=== PATIENT | female | born 2000 | race Caucasian/White ===

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

== ENCOUNTER 2018-03-31 10:22 | Outpatient (CLI) | payer OTHER ==
[~2018-03-31] VITALS: Ht 152.4 cm; Wt 52.2 kg
[~2018-03-31 10:22] MED LIST: CEPH-443 PO
[2018-03-31 10:36] VITALS: Ht 152.4 cm; Wt 52.2 kg
[2018-03-31 10:37] VITALS: BP 113/62; PULSE 77; RESP 18
--- NOTE | 2018-03-31 13:19 | PN ---
Triage Information Date/Time March 31, 2018 Reason for visit: DFM (Patient complaint of no movement for 3 days) Weeks of Gestation 21-week /Para 1 para 0 Diabetes: none Hypertention: none Objective Vital Signs Date Temp Pulse Resp B/P (MAP) Pulse Ox O2 O2 Flow FiO2 Time Delivery Rate 03/31/18 98.0 77 18 113/62 100 Room Air 10:37 (79) Heart Rate: 130's Contractions: None Exam Reported to be long and closed Results/Medications Imaging Results 1. Single, live intrauterine with estimated age of 20 weeks, 5 days. 2. Estimated weight: 407 g, 56 %. 3. Posterior placenta without previa or abruption. 4- Cardiac activity is present with 131 beats per minute. 5. The cervix is closed with trace fluid. The cervical length is 3.3 cm, which is within normal limits MATTHEW PRESCOTT MD Mar 31, 2018 13:19
--- NOTE | 2018-03-31 13:31 | TRIAGE ---
OB Triage Datetime Report Generated by CPN: 03/31/2018 13:30 Datetime: 03/31/2018 13:25 Stage of : OB Triage Maternal Assessment Level of Consciousness: Fully Conscious Labor Evaluation Frequency: 0 Monitor Mode: External Resting Tone [place]: Relaxed Heart Rate Monitor Mode: ORDERS FOR LIMITED MONITORING Pain Assessment Pain Scale: 0 Pain Goal: 3 Membrane Status: Intact Vaginal Bleeding: None Datetime: 03/31/2018 13:07 Vaginal Exam Dilatation (cms): 0.0 Exam By: khemani Datetime: 03/31/2018 12:30 Stage of : OB Triage Maternal Assessment Level of Consciousness: Fully Conscious Labor Evaluation Frequency: 0 Monitor Mode: External Resting Tone [place]: Relaxed Heart Rate Monitor Mode: ORDERS FOR LIMITED MONITORING Pain Assessment Pain Scale: 0 Pain Goal: 3 Membrane Status: Intact Vaginal Bleeding: None Datetime: 03/31/2018 11:30 Stage of : OB Triage Maternal Assessment Level of Consciousness: Fully Conscious Labor Evaluation Frequency: 0 Monitor Mode: External Resting Tone [place]: Relaxed Heart Rate Monitor Mode: External US (Annotations: FHT'S OBTAINED IN THE 140'S) Pain Assessment Pain Scale: 0 Pain Goal: 3 Membrane Status: Intact Vaginal Bleeding: None Datetime: 03/31/2018 10:34 Assessment Type: Triage Maternal Assessment Level of Consciousness: Fully Conscious DTR's/Clonus: DTRs 2+; No Clonus Headache: Denies Blurred Vision: No Respiratory Effort: Unlabored; Regular Rhythm; Equal Expansion Breath Sounds, Left: Clear and Equal Breath Sounds, Right: Clear and Equal Nausea/Vomiting: Denies RUQ Epigastric Pain: Denies Lower Extremities Edema: None Degree: None Upper Extremities Edema: None Degree: None Facial Edema: None Fall Risk Assessment History of Falling: (0) No Secondary Diagnosis: (0) No Ambulatory Aid: (0) Bedrest/Nurse Assist IV Therapy: (0) No Gait: (0) Normal/Bedrest/Immobile Mental Status: (0) Oriented to Own Ability Fall Score: 0 Fall Risk Score Definition: No Risk: No action required Datetime: 03/31/2018 10:31 Monitor Mode: External Heart Rate Monitor Mode: External US Datetime: 03/31/2018 10:27 Time of Arrival: 03/31/2018 10:11 EGA: 21.0 Arrived By: Ambulatory Arrived From: Home Chief Complaint: PT. HERE C/O DFM X 3 DAYS Movement: Absent Contractions: Denies/Absent Rupture of Membranes: Denies Vaginal Bleeding: None Vaginal Discharge: Denies Recent Sexual Intercouse: Denies Abdominal Trauma: Not Applicable Patient Complaints: None Time Provider Notified: 03/31/2018 10:52 Provider Notified: SHANTI Initial Plan: C-TOCO/FHT'S/US-TERE/SVE/CVL
== END 2018-03-31 13:38 | disposition home or self-care (01) ==
LOC: OBT 10:22 → L-D 10:24 → OBT 13:38
PROVIDERS: ATTEND Obstetrics & Gynecology
DX: O36.8120 Decreased fetal movements, second trimester, not applicable or unspecified (principal); Z3A.21 21 weeks gestation of pregnancy
CPT/HCPCS: 76815; 76817; Z7500; G0463

== ENCOUNTER 2018-06-01 19:20 | Inpatient (IN) | payer OTHER ==
[~2018-06-01] VITALS: Ht 152.4 cm; Wt 59.9 kg
[2018-06-01] MEDS ORDERED: PREN-93 PO (19:26)
[2018-06-01 19:33] VITALS: BP 114/55; PULSE 83; RESP 16
[2018-06-01] MEDS ORDERED: MAGNESIUM SULFATE 4 GM/100 ML 100 ML ONE (21:52)
[2018-06-01] MEDS ORDERED: MAGNESIUM SULFATE 4 GM/100 ML 100 ML IV ONE (22:00)
[2018-06-01] MEDS: LACTATED RINGER'S 1,000 ML IV SCH (22:02)
[2018-06-01] MEDS: MAGNESIUM SULFATE 20 GM/500 ML 500 ML IV SCH (22:33)
[2018-06-01] MEDS ORDERED: ACETAMINOPHEN 325 MG TAB PO PRN (23:30)
[2018-06-01] MEDS ORDERED: AL HYDROX/MG HYDROX/SIMETH 30 ML CUP PO PRN (23:30)
[2018-06-01] MEDS: BETAMET NA PHOS/AC(6 MG/ML) 2 ML INJ SYG IM SCH (23:56)
--- NOTE | 2018-06-02 01:59 | TRIAGE ---
OB Triage Datetime Report Generated by CPN: 06/02/2018 01:59 Datetime: 06/02/2018 01:12 Stage of : Antepartum Monitor Mode: External Monitor Mode: External US Comments: loss of contact Datetime: 06/02/2018 01:00 Stage of : Labor Labor Evaluation Frequency: occasional Monitor Mode: External Pattern: Normal: <= 5 Contractions in 10 Minutes Resting Tone [place]: Relaxed Heart Rate FHR Baseline Rate: 120 Monitor Mode: External US Variability: Moderate 6-25 bpm Accelerations: 15X15 Decelerations: None Category: Category I Datetime: 06/02/2018 00:25 Stage of : Labor Labor Evaluation Frequency: occasional Monitor Mode: External Pattern: Normal: <= 5 Contractions in 10 Minutes Resting Tone [place]: Relaxed Heart Rate FHR Baseline Rate: 125 Monitor Mode: External US Variability: Moderate 6-25 bpm Accelerations: 15X15 Decelerations: None Category: Category I Datetime: 06/02/2018 00:00 Stage of : Labor Labor Evaluation Frequency: occasional Monitor Mode: External Pattern: Normal: <= 5 Contractions in 10 Minutes Resting Tone [place]: Relaxed Heart Rate FHR Baseline Rate: 130 Monitor Mode: External US Variability: Moderate 6-25 bpm Accelerations: 15X15 Decelerations: None Category: Category I Datetime: 06/01/2018 22:45 Labor Evaluation Frequency: occasional Monitor Mode: External Quality: Mild Pattern: Normal: <= 5 Contractions in 10 Minutes Resting Tone [place]: Relaxed Heart Rate FHR Baseline Rate: 135 Monitor Mode: External US FHR Baseline Changes: No Baseline Change Variability: Moderate 6-25 bpm Accelerations: 15X15 Decelerations: None Category: Category I Datetime: 06/01/2018 21:47 Assessment Type: Admission Assessment Vaginal Bleeding: None Maternal Assessment Level of Consciousness: Fully Conscious DTR's/Clonus: DTRs 2+; No Clonus Headache: Denies Blurred Vision: No Respiratory Effort: Unlabored; Regular Rhythm; Equal Expansion Breath Sounds, Left: Clear and Equal Breath Sounds, Right: Clear and Equal Nausea/Vomiting: Denies RUQ Epigastric Pain: Denies Facial Edema: None Fall Risk Assessment History of Falling: (0) No Secondary Diagnosis: (0) No Ambulatory Aid: (0) Bedrest/Nurse Assist Gait: (0) Normal/Bedrest/Immobile Mental Status: (0) Oriented to Own Ability Datetime: 06/01/2018 21:46 Time of Arrival: 06/01/2018 21:35 EGA: 29.6 Arrived By: Ambulatory Arrived From: Home Datetime: 06/01/2018 21:39 Labor Evaluation Frequency: 3-4 Monitor Mode: External Duration (sec)2399: 50-60 Quality: Mild Pattern: Normal: <= 5 Contractions in 10 Minutes Resting Tone [place]: Relaxed Heart Rate FHR Baseline Rate: 140 Monitor Mode: External US FHR Baseline Changes: No Baseline Change Variability: Moderate 6-25 bpm Accelerations: 15X15 Decelerations: None Category: Category I Datetime: 06/01/2018 20:40 Labor Evaluation Frequency: x1 Monitor Mode: External Duration (sec)2399: 50 Quality: Mild Pattern: Normal: <= 5 Contractions in 10 Minutes Resting Tone [place]: Relaxed Heart Rate FHR Baseline Rate: 135 Monitor Mode: External US FHR Baseline Changes: No Baseline Change Variability: Moderate 6-25 bpm Accelerations: 15X15 Decelerations: None Category: Category I Datetime: 06/01/2018 19:40 Labor Evaluation Frequency: none Monitor Mode: External Pattern: Normal: <= 5 Contractions in 10 Minutes Resting Tone [place]: Relaxed Heart Rate FHR Baseline Rate: 135 Monitor Mode: External US FHR Baseline Changes: No Baseline Change Variability: Moderate 6-25 bpm Accelerations: 15X15 Decelerations: None Category: Category I Datetime: 06/01/2018 19:36 Time of Arrival: 06/01/2018 19:17 EGA: 29.6 Arrived By: Wheelchair Arrived From: Other Hospital Chief Complaint: dfm/leaking Movement: Decreased Contractions: Denies/Absent Rupture of Membranes: Unsure Vaginal Bleeding: None Vaginal Discharge: Present Recent Sexual Intercouse: Denies Abdominal Trauma: Not Applicable Time Provider Notified: 06/01/2018 19:44 Provider Notified: SHANTI Initial Plan: cefm, ua, ROM+, cervical length, CBC Datetime: 06/01/2018 19:34 Comments: MONITORS APPLIED. AUDIBLE FHT Datetime: 06/01/2018 19:33 Stage of : OB Triage Assessment Type: Triage Maternal Assessment Level of Consciousness: Fully Conscious DTR's/Clonus: DTRs 2+; No Clonus Headache: Denies Blurred Vision: No Respiratory Effort: Unlabored; Regular Rhythm; Equal Expansion Breath Sounds, Left: Clear and Equal Breath Sounds, Right: Clear and Equal Nausea/Vomiting: Denies RUQ Epigastric Pain: Denies Lower Extremities Edema: None Degree: None Upper Extremities Edema: None Degree: None Facial Edema: None Temperature Route: Oral Fall Risk Assessment History of Falling: (0) No Secondary Diagnosis: (0) No Ambulatory Aid: (0) Bedrest/Nurse Assist IV Therapy: (0) No Gait: (0) Normal/Bedrest/Immobile Mental Status: (0) Oriented to Own Ability Fall Score: 0 Fall Risk Score Definition: No Risk: No action required Pain Assessment Pain Scale: 0 Pain Presence: None/Denies Pain Type: N/A Datetime: 03/31/2018 10:34 Fall Score: 0 Fall Risk Score Definition: No Risk: No action required Datetime: 03/31/2018 10:27 EGA: 21.0
[2018-06-02] MEDS: LACTATED RINGER'S 1,000 ML IV SCH ×2 (05:36→17:17)
[2018-06-02] MEDS: MAGNESIUM SULFATE 20 GM/500 ML 500 ML IV SCH (08:35)
[2018-06-02] MEDS: PRENATAL VITAMIN PO SCH (09:14)
[2018-06-02] MEDS: DOCUSATE SODIUM 100 MG CAP PO SCH (09:14)
[2018-06-02] MEDS ORDERED: AL HYDROX/MG HYDROX/SIMETH 30 ML CUP PO ONE (11:30)
--- NOTE | 2018-06-02 11:59 | HP ---
Date/Time of Note Date/Time of Note late entry DATE: 06/01/18 OB - History Hx of Present Free Text/Dictation 18 y/o female at29 weeks C/O onset of passage of water and uterine contractions started few hours prior to admission Estimated Due Date: Aug 11, 2018 : 1 Para: 0 Care: Good Care Ultrasounds: Normal mid trimester US Obstetrical Complications: None Medical Complications: None Past Family/Social History * Past Medical, Surgical, Family and Obstetric Histories reviewed from chart. OB Admission Exam Vital Signs Vital Signs Vital Signs Date Temp Pulse Resp B/P (MAP) Pulse Ox O2 O2 Flow FiO2 Time Delivery Rate 06/01/18 98.0 83 16 114/55 Room Air 19:33 (74) Physical Exam HEENT: WNL Heart: Rhythm Normal Lungs: Clear, Equal Abdomen: WNL Extremities: Normal Reflexes: Normal Cervical Dilatation: None Effacement: 25% Station: -3 Membranes: Intact Heart Rate: 150's Accelerations: Accelerations Present Decelerations: No Decelerations Varibility: Marked Contractions on Admission: 6-10 Minutes Apart Last 72 hours Lab Results CBC & BMP 06/01/18 19:58 06/01/18 20:44 Liver Function Test 06/01/18 20:44 Alanine Aminotransferase (ALT/SGPT) 10 L Albumin 3.5 Alkaline Phosphatase 119 Aspartate Amino Transf (AST/SGOT) 53 H Direct Bilirubin 0.00 Total Protein 6.3 Magnesium Level Test 06/02/18 02:41 06/02/18 07:59 Magnesium Level 5.0 H 5.9 *H OB Assessment/Plan Other Assessment: 29.6 weeks gestation U/Cs ruptured membranes ruled out funneling of the cervix Other plan: tocolysis of uterine contractions Steroids were ordered MATTHEW PRESCOTT MD Jun 02, 2018 11:58
[2018-06-02] MEDS: BETAMET NA PHOS/AC(6 MG/ML) 2 ML INJ SYG IM SCH (14:41)
--- NOTE | 2018-06-02 16:29 | PN ---
Date/Time of Note Date/Time of Note DATE: 06/02/18 TIME: 16:24 OB Subjective Subjective Subjective Currently has no complaint of uterine contractions She refused the betamethasone for questionable reasons OB Objective Objective Objective Magnesium sulfate is DC'd because of patient discomfort Neuro physical exam as well as vital signs are stable On electronic monitoring still minimal or no uterine contractions seen OB Assessment/Plan Other Assessment: labor with slightly shortened cervix and funneling of his at 29+ weeks Other plan: Continue with p.o. Procardia Encourage patient to receive betamethasone and possibly discharge patient next day MATTHEW PRESCOTT MD Jun 02, 2018 16:29
[2018-06-02] MEDS: NIFEdipine 10 MG CAP PO SCH (18:06)
[2018-06-03] MEDS: NIFEdipine 10 MG CAP PO SCH ×4 (00:29→17:48)
[2018-06-03] MEDS: LACTATED RINGER'S 1,000 ML IV SCH ×3 (01:25→13:48)
[2018-06-03] MEDS: PRENATAL VITAMIN PO SCH (09:04)
[2018-06-03] MEDS: DOCUSATE SODIUM 100 MG CAP PO SCH (09:04)
[2018-06-03] MEDS ORDERED: BETAMET NA PHOS/AC(6 MG/ML) 2 ML INJ SYG IM SCH (14:00)
--- NOTE | 2018-06-03 18:01 | DS ---
Date/Time of Note Date/Time of Note DATE: 06/03/18 TIME: 18:00 Obstetrical Discharge Record Final Diagnosis Final Diagnosis: not delivered Other Final Diagnosis contractions at 30 weeks Complications Labor Tocolytics: Magnesium Sulfate, Other (Nifedipine) Condition on Discharge Physical Assessment Voiding: Yes Bowel Movement: Yes Breast: Soft, non-tender, Filling Fundus: Other () Abdomen and Incision: Abdomen is gravid fundal height is 3031 cm heart tones are reactive On electronic monitoring no uterine contractions seen Calf Tenderness: No Patient Condition: Good MATTHEW PRESCOTT MD Jun 03, 2018 18:01
--- NOTE | 2018-06-03 18:02 | PD.PPDC ---
[employer] Discharge Instruction Provider Information Physician Information 18-year-old female was admitted for contractions tocolyse is a contractions Diagnosis [id number] Final Diagnosis: [id number] Term labor Condition [id number] Patient Condition: [id number] Good Diet [id number] Diet: [id number] Resume Regular Diet Activity/Restrictions [id number] Activity: [id number] Bedrest May Shower [id number] Restrictions: [id number] No Exercising No Lifting Minimize Walking Minimize Stair-climbing Nothing in the Vagina Follow-up Follow-up with Physician: 1, 2, Day/Days (In clinic) Return to clinic for Comment: Pelvic and bedrest until delivery MATTHEW PRESCOTT MD Jun 03, 2018 18:02
[2018-06-03] MEDS ORDERED: NIFE10CA PO (18:03)
[2018-06-03] MEDS ORDERED: PROG100C5 VAG (18:07)
[2018-06-03] MEDS: PROGESTERONE 100 MG CAP VAG SCH ×2 (19:30→19:52)
== END 2018-06-03 19:50 | disposition home or self-care (01) | DRG 832 ==
LOC: OBT 19:20 → L-D 19:20 → OBT 21:25 → L-D 21:25 → PP1 23:52
PROVIDERS: ADMIT Obstetrics & Gynecology; ATTEND Obstetrics & Gynecology
DX: O60.03 Preterm labor without delivery, third trimester (principal); O26.873 Cervical shortening, third trimester; Z3A.29 29 weeks gestation of pregnancy
CPT/HCPCS: 76815; 76817; 76818; 80053; 80307; 81001; 83735; 84112; 85025; G0463; J0702; J3475; J7120

== ENCOUNTER 2018-07-11 07:39 | Outpatient (CLI) | payer OTHER ==
[~2018-07-11] VITALS: Ht 152.4 cm; Wt 63.0 kg
[~2018-07-11 07:39] MED LIST changes: -CEPH-443 PO; +NIFE10CA PO; +PREN-93 PO; +PROG100C5 VAG
[2018-07-11 07:59] VITALS: Ht 152.4 cm; Wt 63.0 kg
[2018-07-11 08:00] VITALS: BP 109/62; PULSE 80; RESP 18
[2018-07-11] MEDS ORDERED: ACETAMINOPHEN 325 MG TAB PO ONE (11:00)
--- NOTE | 2018-07-11 13:32 | TRIAGE ---
OB Triage Datetime Report Generated by CPN: 07/11/2018 13:31 Datetime: 07/11/2018 12:41 Stage of : OB Triage Datetime: 07/11/2018 12:38 Labor Evaluation Frequency: 8-12 Monitor Mode: External Duration (sec)2399: 40-60 Quality: Mild Pattern: Normal: <= 5 Contractions in 10 Minutes Resting Tone [place]: Relaxed Heart Rate FHR Baseline Rate: 125 Monitor Mode: External US Variability: Moderate 6-25 bpm Accelerations: 10X10 Decelerations: None Category: Category I Pain Assessment Pain Scale: 0 Pain Presence: None/Denies Pain Type: N/A Pain Goal: 3 Pain Relief Measures: Comfort Measures Datetime: 07/11/2018 11:35 Labor Evaluation Frequency: 6-10 Monitor Mode: External Duration (sec)2399: 50-60 Pattern: Normal: <= 5 Contractions in 10 Minutes Resting Tone [place]: Relaxed Heart Rate FHR Baseline Rate: 135 Monitor Mode: External US Variability: Moderate 6-25 bpm Accelerations: 10X10 Decelerations: None Category: Category I Pain Assessment Pain Scale: 4 Pain Presence: Intermittent Pain Type: Cramping Pain Location: Perineum Pain Goal: 3 Pain Relief Measures: Comfort Measures Datetime: 07/11/2018 10:52 Stage of : OB Triage Datetime: 07/11/2018 10:40 Stage of : OB Triage Datetime: 07/11/2018 10:36 Labor Evaluation Frequency: 12-15 Duration (sec)2399: 50-60 Heart Rate FHR Baseline Rate: 125 Monitor Mode: External US Variability: Moderate 6-25 bpm Accelerations: 10X10 Decelerations: None Category: Category I Pain Assessment Pain Scale: 5 Pain Presence: Intermittent Pain Type: Cramping Pain Location: Abdomen Pain Goal: 3 Pain Relief Measures: Comfort Measures Datetime: 07/11/2018 10:34 Exam By: S KATHERINE Vaginal Bleeding: None Cervix, Consistency: Soft Cervix, Position: Posterior Presentation 'A': Cephalic Datetime: 07/11/2018 08:52 Labor Evaluation Frequency: 6-8 Monitor Mode: External Duration (sec)2399: 30-50 Quality: Mild Pattern: Normal: <= 5 Contractions in 10 Minutes Resting Tone [place]: Relaxed Heart Rate FHR Baseline Rate: 135 Monitor Mode: External US Variability: Moderate 6-25 bpm Accelerations: 10X10 Decelerations: None Category: Category I Pain Assessment Pain Scale: 5 Pain Presence: Intermittent Pain Type: Cramping Pain Location: Abdomen Pain Goal: 3 Pain Relief Measures: Comfort Measures Datetime: 07/11/2018 08:22 Stage of : OB Triage Datetime: 07/11/2018 07:49 Stage of : OB Triage Assessment Type: Triage Maternal Assessment Level of Consciousness: Fully Conscious DTR's/Clonus: DTRs 2+; No Clonus Headache: Denies Blurred Vision: No Respiratory Effort: Unlabored; Regular Rhythm; Equal Expansion Breath Sounds, Left: Clear and Equal Breath Sounds, Right: Clear and Equal Nausea/Vomiting: Denies RUQ Epigastric Pain: Denies Facial Edema: None Temperature Route: Axillary Fall Risk Assessment History of Falling: (0) No Secondary Diagnosis: (0) No Ambulatory Aid: (0) Bedrest/Nurse Assist IV Therapy: (0) No Gait: (0) Normal/Bedrest/Immobile Mental Status: (0) Oriented to Own Ability Fall Score: 0 Fall Risk Score Definition: No Risk: No action required Labor Evaluation Frequency: 0 Monitor Mode: External Pattern: Normal: <= 5 Contractions in 10 Minutes Resting Tone [place]: Relaxed Heart Rate FHR Baseline Rate: 125 Monitor Mode: External US Variability: Moderate 6-25 bpm Accelerations: None Pain Assessment Pain Scale: 5 Pain Presence: Intermittent Pain Type: Cramping; Contraction Pain Location: Abdomen Pain Goal: 3 Pain Relief Measures: Comfort Measures Vaginal Exam Dilatation (cms): 1.5 Effacement (%): 70 Station: -1 Exam By: Luiza KATHERINE Membrane Status: Intact Datetime: 07/11/2018 07:48 Time of Arrival: 07/11/2018 07:36 EGA: 36.6 Arrived By: Ambulatory Arrived From: Home Chief Complaint: C/O UC'S Q 20 MIN SINCE APPROX 545 THIS AM, DENIES LEAKING OR BLEEDING Movement: Present Contractions: Irregular Contractions: 15-20 Rupture of Membranes: Denies Vaginal Bleeding: None Vaginal Discharge: Present Recent Sexual Intercouse: Denies Abdominal Trauma: Not Applicable Patient Complaints: Contractions; Cramping Time Provider Notified: 07/11/2018 08:25 Provider Notified: aria Initial Plan: MONITOR, VE, bpp, CBC, UA, TYLENOL Datetime: 07/11/2018 07:42 EGA: 31.1 Datetime: 06/03/2018 21:15 Stage of : Antepartum Datetime: 06/03/2018 21:00 Labor Evaluation Frequency: NONE Monitor Mode: External Resting Tone [place]: Relaxed Contraction Comments: REMOVED FOR DISCHARGE Heart Rate FHR Baseline Rate: 130 Monitor Mode: External US Variability: Moderate 6-25 bpm Accelerations: 15X15 Decelerations: None Category: Category I Comments: REMOVED FOR DISCHARGE Pain Presence: None/Denies Pain Type: N/A Datetime: 06/03/2018 20:00 Labor Evaluation Frequency: NONE Monitor Mode: External Resting Tone [place]: Relaxed Heart Rate FHR Baseline Rate: 135 Monitor Mode: External US Variability: Moderate 6-25 bpm Accelerations: 15X15 Decelerations: None Category: Category I Pain Presence: None/Denies Pain Type: N/A Datetime: 06/03/2018 19:52 Stage of : Antepartum Datetime: 06/03/2018 19:50 Stage of : Antepartum Datetime: 06/03/2018 19:18 Stage of : Antepartum Assessment Type: Ongoing Assessment Maternal Assessment Level of Consciousness: Fully Conscious DTR's/Clonus: DTRs 2+; No Clonus Headache: Denies Blurred Vision: No Respiratory Effort: Unlabored; Regular Rhythm; Equal Expansion Breath Sounds, Left: Clear and Equal Breath Sounds, Right: Clear and Equal Nausea/Vomiting: Denies RUQ Epigastric Pain: Denies Lower Extremities Edema: None Degree: None Upper Extremities Edema: None Degree: None Facial Edema: None Temperature Route: Oral Fall Risk Assessment History of Falling: (0) No Secondary Diagnosis: (0) No Ambulatory Aid: (0) Bedrest/Nurse Assist IV Therapy: (0) No Gait: (0) Normal/Bedrest/Immobile Mental Status: (0) Oriented to Own Ability Fall Score: 0 Fall Risk Score Definition: No Risk: No action required Monitor Mode: External Contraction Comments: PT DENIES UC'S Monitor Mode: External US Comments: PT DENIES CRAMPING Pain Presence: None/Denies Pain Type: N/A Datetime: 06/03/2018 19:15 Stage of : Antepartum Datetime: 06/03/2018 18:04 Labor Evaluation Frequency: 0/hr Monitor Mode: External Heart Rate FHR Baseline Rate: 125 Monitor Mode: External US Variability: Moderate 6-25 bpm Accelerations: 15X15 Decelerations: None Datetime: 06/03/2018 17:47 Labor Evaluation Frequency: 0 Monitor Mode: External Pain Presence: None/Denies Datetime: 06/03/2018 17:04 Stage of : Antepartum Labor Evaluation Frequency: 0/hr Monitor Mode: External Heart Rate FHR Baseline Rate: 135 Monitor Mode: External US Variability: Moderate 6-25 bpm Accelerations: 15X15 Decelerations: None Datetime: 06/03/2018 16:05 Labor Evaluation Frequency: 0/hr Monitor Mode: External Heart Rate FHR Baseline Rate: 135 Monitor Mode: External US Variability: Moderate 6-25 bpm Accelerations: 15X15 Decelerations: None Datetime: 06/03/2018 15:06 Maternal Assessment Level of Consciousness: Fully Conscious Headache: Denies Blurred Vision: No Respiratory Effort: Unlabored Nausea/Vomiting: Denies RUQ Epigastric Pain: Denies Labor Evaluation Frequency: 0/hr Monitor Mode: External Resting Tone [place]: Relaxed Heart Rate FHR Baseline Rate: 135 Monitor Mode: External US Variability: Moderate 6-25 bpm Accelerations: 15X15 Decelerations: None Pain Presence: None/Denies Datetime: 06/03/2018 14:03 Stage of : Antepartum Labor Evaluation Frequency: 0/hr Monitor Mode: External Heart Rate FHR Baseline Rate: 135 Monitor Mode: External US Variability: Moderate 6-25 bpm Accelerations: 15X15 Datetime: 06/03/2018 13:23 Pain Presence: None/Denies Datetime: 06/03/2018 12:36 Stage of : Antepartum Maternal Assessment Level of Consciousness: Fully Conscious Headache: Denies Nausea/Vomiting: Denies RUQ Epigastric Pain: Denies Resting Tone [place]: Relaxed Pain Presence: None/Denies Membrane Status: Intact Vaginal Bleeding: None Datetime: 06/03/2018 11:16 Pain Presence: None/Denies Datetime: 06/03/2018 11:00 Labor Evaluation Frequency: 0/hr Monitor Mode: External Heart Rate FHR Baseline Rate: 135 Monitor Mode: External US Variability: Moderate 6-25 bpm Accelerations: 15X15 Decelerations: None Datetime: 06/03/2018 10:41 Heart Rate FHR Baseline Rate: 135 Monitor Mode: External US Variability: Moderate 6-25 bpm Accelerations: 15X15 Decelerations: None Pain Presence: None/Denies Datetime: 06/03/2018 10:00 Stage of : Antepartum Maternal Assessment Level of Consciousness: Fully Conscious Headache: Denies Nausea/Vomiting: Denies RUQ Epigastric Pain: Denies Labor Evaluation Frequency: 0/hr Monitor Mode: External Heart Rate FHR Baseline Rate: 125 Monitor Mode: External US Variability: Moderate 6-25 bpm Accelerations: 15X15 Decelerations: None Pain Assessment Pain Scale: 0 Pain Presence: None/Denies Vaginal Bleeding: None Datetime: 06/03/2018 09:03 Maternal Assessment Level of Consciousness: Fully Conscious Headache: Denies Blurred Vision: No Nausea/Vomiting: Denies Comments: break in tracing. pt. moving and adjusting her position in bed while eating. pt. denies a [place] S_S of ptl at this time Pain Presence: None/Denies Datetime: 06/03/2018 08:25 Labor Evaluation Frequency: 0/hr Monitor Mode: External Heart Rate FHR Baseline Rate: 125 Monitor Mode: External US Variability: Moderate 6-25 bpm Accelerations: 15X15 Decelerations: None Datetime: 06/03/2018 07:55 Maternal Assessment Level of Consciousness: Fully Conscious Headache: Denies Blurred Vision: No Respiratory Effort: Unlabored Breath Sounds, Left: Clear and Equal Breath Sounds, Right: Clear and Equal Nausea/Vomiting: Denies RUQ Epigastric Pain: Denies Resting Tone [place]: Relaxed Pain Presence: None/Denies Membrane Status: Intact Datetime: 06/03/2018 07:48 Monitor Mode: External Resting Tone [place]: Relaxed Monitor Mode: External US Datetime: 06/03/2018 07:00 Stage of : Antepartum Labor Evaluation Frequency: Irritability/Irregular Monitor Mode: External Duration (sec)2399: 20-90 Quality: Mild Pattern: Normal: <= 5 Contractions in 10 Minutes Resting Tone [place]: Relaxed Heart Rate FHR Baseline Rate: 125 Monitor Mode: External US Variability: Moderate 6-25 bpm Accelerations: 15X15 Datetime: 06/03/2018 06:29 Stage of : Antepartum Datetime: 06/03/2018 06:17 Stage of : Antepartum Pain Assessment Comments: Pt continues to deny abd pain or cramping but reports upper stomach pain when takes Procardia pill. Instructed pt to call if pain gets any worse. Datetime: 06/03/2018 06:15 Stage of : Antepartum Temperature Route: Oral Datetime: 06/03/2018 06:00 Stage of : Antepartum Labor Evaluation Frequency: Irritability/Irregular Monitor Mode: External Duration (sec)2399: 20-90 Quality: Mild Pattern: Normal: <= 5 Contractions in 10 Minutes Resting Tone [place]: Relaxed Heart Rate FHR Baseline Rate: 135 Monitor Mode: External US Variability: Moderate 6-25 bpm Accelerations: 15X15 Decelerations: Variable Category: Category II Datetime: 06/03/2018 05:00 Stage of : Antepartum Labor Evaluation Frequency: Irritability/UC x1 Monitor Mode: External Duration (sec)2399: 20-100 Quality: Mild Pattern: Normal: <= 5 Contractions in 10 Minutes Resting Tone [place]: Relaxed Heart Rate FHR Baseline Rate: 125 Monitor Mode: External US Variability: Moderate 6-25 bpm Accelerations: 15X15 Decelerations: None Category: Category I Datetime: 06/03/2018 04:00 Stage of : Antepartum Labor Evaluation Frequency: Occasional Monitor Mode: External Duration (sec)2399: 40-60 Quality: Mild Pattern: Normal: <= 5 Contractions in 10 Minutes Resting Tone [place]: Relaxed Heart Rate FHR Baseline Rate: 120 Monitor Mode: External US Variability: Moderate 6-25 bpm Accelerations: 15X15 Decelerations: Variable Category: Category II Datetime: 06/03/2018 03:00 Stage of : Antepartum Labor Evaluation Frequency: Irritability/UC x1 Monitor Mode: External Duration (sec)2399: 20-120 Quality: Mild Pattern: Normal: <= 5 Contractions in 10 Minutes Resting Tone [place]: Relaxed Heart Rate FHR Baseline Rate: 125 Monitor Mode: External US Variability: Moderate 6-25 bpm Accelerations: 15X15 Decelerations: Variable (Annotations: down to 110BPM) Category: Category II Datetime: 06/03/2018 02:00 Stage of : Antepartum Labor Evaluation Frequency: Irritability Monitor Mode: External Duration (sec)2399: 20-30 Quality: Mild Pattern: Normal: <= 5 Contractions in 10 Minutes Resting Tone [place]: Relaxed Heart Rate FHR Baseline Rate: 130 Monitor Mode: External US Variability: Moderate 6-25 bpm Accelerations: 15X15 Datetime: 06/03/2018 01:24 Stage of : Antepartum Datetime: 06/03/2018 01:00 Stage of : Antepartum Labor Evaluation Frequency: x1 Monitor Mode: External Duration (sec)2399: 50 Quality: Mild Pattern: Normal: <= 5 Contractions in 10 Minutes Resting Tone [place]: Relaxed Heart Rate FHR Baseline Rate: 125 Monitor Mode: External US Variability: Moderate 6-25 bpm Accelerations: 15X15 Datetime: 06/03/2018 00:29 Stage of : Antepartum Datetime: 06/03/2018 00:26 Stage of : Antepartum Datetime: 06/03/2018 00:20 Stage of : Antepartum Temperature Route: Oral Pain Assessment Pain Scale: 0 Pain Presence: None/Denies Pain Type: N/A Datetime: 06/03/2018 00:00 Labor Evaluation Frequency: x1 Monitor Mode: External Duration (sec)2399: 60 Quality: Mild Pattern: Normal: <= 5 Contractions in 10 Minutes Resting Tone [place]: Relaxed Heart Rate FHR Baseline Rate: 130 Monitor Mode: External US Variability: Moderate 6-25 bpm Accelerations: 15X15 Decelerations: None Category: Category I Datetime: 06/02/2018 23:00 Labor Evaluation Frequency: NONE Monitor Mode: External Resting Tone [place]: Relaxed Heart Rate FHR Baseline Rate: 125 Monitor Mode: External US Variability: Moderate 6-25 bpm Accelerations: 15X15 Decelerations: None Category: Category I Datetime: 06/02/2018 22:00 Labor Evaluation Frequency: NONE Monitor Mode: External Resting Tone [place]: Relaxed Heart Rate FHR Baseline Rate: 120 Monitor Mode: External US Variability: Moderate 6-25 bpm Accelerations: 15X15 Decelerations: None Category: Category I Datetime: 06/02/2018 21:19 Pain Assessment Pain Scale: 0 Pain Presence: None/Denies Pain Type: N/A Datetime: 06/02/2018 21:00 Labor Evaluation Frequency: NONE Monitor Mode: External Resting Tone [place]: Relaxed Heart Rate FHR Baseline Rate: 130 Monitor Mode: External US Variability: Moderate 6-25 bpm Accelerations: 15X15 Decelerations: None Category: Category I Datetime: 06/02/2018 20:00 Labor Evaluation Frequency: NONE Monitor Mode: External Resting Tone [place]: Relaxed Heart Rate FHR Baseline Rate: 135 Monitor Mode: External US Variability: Moderate 6-25 bpm Accelerations: 15X15 Decelerations: None Category: Category I Datetime: 06/02/2018 19:28 Assessment Type: Ongoing Assessment Maternal Assessment Level of Consciousness: Fully Conscious DTR's/Clonus: DTRs 2+; No Clonus Headache: Denies Blurred Vision: No Respiratory Effort: Unlabored; Regular Rhythm; Equal Expansion Breath Sounds, Left: Clear and Equal Breath Sounds, Right: Clear and Equal Nausea/Vomiting: Denies RUQ Epigastric Pain: Denies Lower Extremities Edema: None Degree: None Upper Extremities Edema: None Degree: None Facial Edema: None Temperature Route: Oral Fall Risk Assessment History of Falling: (0) No Secondary Diagnosis: (0) No Ambulatory Aid: (0) Bedrest/Nurse Assist IV Therapy: (20) Yes Gait: (0) Normal/Bedrest/Immobile Mental Status: (0) Oriented to Own Ability Fall Score: 20 Fall Risk Score Definition: No Risk: No action required Monitor Mode: Palpation Resting Tone [place]: Relaxed Pain Assessment Pain Scale: 0 Pain Presence: None/Denies Pain Type: N/A Pain Goal: 4 Membrane Status: Intact Datetime: 06/02/2018 19:00 Stage of : Antepartum Maternal Assessment Level of Consciousness: Fully Conscious DTR's/Clonus: DTRs 1+ Headache: Denies Breath Sounds, Left: Clear and Equal Breath Sounds, Right: Clear and Equal Nausea/Vomiting: Denies RUQ Epigastric Pain: Denies Labor Evaluation Frequency: NONE Monitor Mode: External Resting Tone [place]: Relaxed Heart Rate FHR Baseline Rate: 130 Monitor Mode: External US Variability: Moderate 6-25 bpm Accelerations: 15X15 Decelerations: None Category: Category I Pain Assessment Pain Scale: 0 Pain Presence: None/Denies Pain Type: N/A Pain Goal: 3 Membrane Status: Intact Datetime: 06/02/2018 18:00 Stage of : Antepartum Maternal Assessment Level of Consciousness: Fully Conscious DTR's/Clonus: DTRs 1+ Headache: Denies Breath Sounds, Left: Clear and Equal Breath Sounds, Right: Clear and Equal Nausea/Vomiting: Denies RUQ Epigastric Pain: Denies Labor Evaluation Frequency: X2 Monitor Mode: External Duration (sec)2399: 40-50 Quality: Mild Pattern: Normal: <= 5 Contractions in 10 Minutes Resting Tone [place]: Relaxed Heart Rate FHR Baseline Rate: 130 Monitor Mode: External US Variability: Moderate 6-25 bpm Accelerations: 15X15 Decelerations: None Category: Category I Pain Assessment Pain Scale: 0 Pain Presence: None/Denies Pain Type: N/A Pain Goal: 3 Membrane Status: Intact Datetime: 06/02/2018 17:00 Stage of : Antepartum Maternal Assessment Level of Consciousness: Fully Conscious DTR's/Clonus: DTRs 1+ Headache: Denies Breath Sounds, Left: Clear and Equal Breath Sounds, Right: Clear and Equal Nausea/Vomiting: Denies RUQ Epigastric Pain: Denies Labor Evaluation Frequency: X3 Monitor Mode: External Duration (sec)2399: 40-50 Quality: Mild Pattern: Normal: <= 5 Contractions in 10 Minutes Resting Tone [place]: Relaxed Heart Rate FHR Baseline Rate: 130 Monitor Mode: External US Variability: Moderate 6-25 bpm Accelerations: 15X15 Decelerations: None Category: Category I Pain Assessment Pain Scale: 0 Pain Presence: None/Denies Pain Type: N/A Pain Goal: 3 Membrane Status: Intact Datetime: 06/02/2018 16:00 Stage of : Antepartum Maternal Assessment Level of Consciousness: Fully Conscious DTR's/Clonus: DTRs 1+ Headache: Denies Breath Sounds, Left: Clear and Equal Breath Sounds, Right: Clear and Equal Nausea/Vomiting: Denies RUQ Epigastric Pain: Denies Labor Evaluation Frequency: X3 Monitor Mode: External Duration (sec)2399: 40-50 Quality: Mild Pattern: Normal: <= 5 Contractions in 10 Minutes Resting Tone [place]: Relaxed Heart Rate FHR Baseline Rate: 125 Monitor Mode: External US Variability: Moderate 6-25 bpm Accelerations: 15X15 Decelerations: Variable Category: Category I Pain Assessment Pain Scale: 0 Pain Presence: None/Denies Pain Type: N/A Pain Goal: 3 Membrane Status: Intact Datetime: 06/02/2018 15:00 Stage of : Antepartum Maternal Assessment Level of Consciousness: Fully Conscious DTR's/Clonus: DTRs 1+ Headache: Denies Breath Sounds, Left: Clear and Equal Breath Sounds, Right: Clear and Equal Nausea/Vomiting: Denies RUQ Epigastric Pain: Denies Monitor Mode: External Resting Tone [place]: Relaxed Heart Rate FHR Baseline Rate: 125 Monitor Mode: External US Variability: Moderate 6-25 bpm Accelerations: 15X15 Decelerations: Variable Comments: STRIP REACTIVE ACCORDING TO AGE Pain Assessment Pain Scale: 0 Pain Presence: None/Denies Pain Type: N/A Pain Goal: 3 Membrane Status: Intact Datetime: 06/02/2018 14:00 Stage of : Antepartum Maternal Assessment Level of Consciousness: Fully Conscious DTR's/Clonus: DTRs 1+ Headache: Denies Breath Sounds, Left: Clear and Equal Breath Sounds, Right: Clear and Equal Nausea/Vomiting: Denies RUQ Epigastric Pain: Denies Labor Evaluation Frequency: X2 Monitor Mode: External Duration (sec)2399: 50 Quality: Mild Pattern: Normal: <= 5 Contractions in 10 Minutes Resting Tone [place]: Relaxed Heart Rate FHR Baseline Rate: 125 Monitor Mode: External US Variability: Moderate 6-25 bpm Accelerations: 15X15 Decelerations: None Category: Category I Pain Assessment Pain Scale: 0 Pain Presence: None/Denies Pain Type: N/A Pain Goal: 3 Membrane Status: Intact Datetime: 06/02/2018 13:00 Stage of : Antepartum Maternal Assessment Level of Consciousness: Fully Conscious DTR's/Clonus: DTRs 1+ Headache: Denies Breath Sounds, Left: Clear and Equal Breath Sounds, Right: Clear and Equal Nausea/Vomiting: Denies RUQ Epigastric Pain: Denies Labor Evaluation Frequency: X1 Monitor Mode: External Duration (sec)2399: 50 Quality: Mild Pattern: Normal: <= 5 Contractions in 10 Minutes Resting Tone [place]: Relaxed Heart Rate FHR Baseline Rate: 125 Monitor Mode: External US Variability: Moderate 6-25 bpm Accelerations: 15X15 Decelerations: None Category: Category I Pain Assessment Pain Scale: 0 Pain Presence: None/Denies Pain Type: N/A Pain Goal: 3 Membrane Status: Intact Datetime: 06/02/2018 12:00 Stage of : Antepartum Maternal Assessment Level of Consciousness: Fully Conscious DTR's/Clonus: DTRs 1+ Headache: Denies Breath Sounds, Left: Clear and Equal Breath Sounds, Right: Clear and Equal Nausea/Vomiting: Denies RUQ Epigastric Pain: Denies Labor Evaluation Frequency: X2 Monitor Mode: External Duration (sec)2399: 50-80 Quality: Mild Pattern: Normal: <= 5 Contractions in 10 Minutes Resting Tone [place]: Relaxed Heart Rate FHR Baseline Rate: 125 Monitor Mode: External US Variability: Moderate 6-25 bpm Accelerations: 15X15 Decelerations: None Category: Category I Pain Assessment Pain Scale: 0 Pain Presence: None/Denies Pain Type: N/A Pain Goal: 3 Membrane Status: Intact Datetime: 06/02/2018 11:00 Stage of : Antepartum Maternal Assessment Level of Consciousness: Fully Conscious DTR's/Clonus: DTRs 1+ Headache: Denies Breath Sounds, Left: Clear and Equal Breath Sounds, Right: Clear and Equal Nausea/Vomiting: Denies RUQ Epigastric Pain: Denies Labor Evaluation Frequency: X2 Monitor Mode: External Duration (sec)2399: 50-80 Quality: Mild Pattern: Normal: <= 5 Contractions in 10 Minutes Resting Tone [place]: Relaxed Heart Rate FHR Baseline Rate: 125 Monitor Mode: External US Variability: Moderate 6-25 bpm Accelerations: 15X15 Decelerations: None Category: Category I Pain Assessment Pain Scale: 0 Pain Presence: None/Denies Pain Type: N/A Pain Goal: 3 Membrane Status: Intact Datetime: 06/02/2018 10:00 Stage of : Antepartum Maternal Assessment Level of Consciousness: Fully Conscious DTR's/Clonus: DTRs 1+ Headache: Denies Breath Sounds, Left: Clear and Equal Breath Sounds, Right: Clear and Equal Nausea/Vomiting: Denies RUQ Epigastric Pain: Denies Labor Evaluation Frequency: X1 Monitor Mode: External Quality: Mild Pattern: Normal: <= 5 Contractions in 10 Minutes Resting Tone [place]: Relaxed Heart Rate FHR Baseline Rate: 115 Monitor Mode: External US Variability: Moderate 6-25 bpm Accelerations: 15X15 Decelerations: None Category: Category I Pain Assessment Pain Scale: 0 Pain Presence: None/Denies Pain Type: N/A Pain Goal: 3 Membrane Status: Intact Datetime: 06/02/2018 09:00 Stage of : Antepartum Maternal Assessment Level of Consciousness: Fully Conscious DTR's/Clonus: DTRs 1+ Headache: Denies Breath Sounds, Left: Clear and Equal Breath Sounds, Right: Clear and Equal Nausea/Vomiting: Denies RUQ Epigastric Pain: Denies Labor Evaluation Frequency: X1 Monitor Mode: External Quality: Mild Pattern: Normal: <= 5 Contractions in 10 Minutes Resting Tone [place]: Relaxed Heart Rate FHR Baseline Rate: 120 Monitor Mode: External US Variability: Moderate 6-25 bpm Accelerations: 15X15 Decelerations: None Category: Category I Pain Assessment Pain Scale: 0 Pain Presence: None/Denies Pain Type: N/A Pain Goal: 3 Membrane Status: Intact Datetime: 06/02/2018 08:00 Maternal Assessment Level of Consciousness: Fully Conscious DTR's/Clonus: DTRs 1+ Headache: Denies Blurred Vision: No Respiratory Effort: Unlabored Breath Sounds, Left: Clear and Equal Breath Sounds, Right: Clear and Equal Nausea/Vomiting: Denies RUQ Epigastric Pain: Denies Facial Edema: None Labor Evaluation Frequency: X3 Monitor Mode: External Duration (sec)2399: 40-60 Quality: Mild Pattern: Normal: <= 5 Contractions in 10 Minutes Resting Tone [place]: Relaxed Heart Rate FHR Baseline Rate: 120 Monitor Mode: External US Variability: Moderate 6-25 bpm Accelerations: 15X15 Decelerations: None Category: Category I Pain Assessment Pain Scale: 0 Pain Presence: None/Denies Pain Type: N/A Pain Goal: 3 Membrane Status: Intact Datetime: 06/02/2018 07:57 Assessment Type: Ongoing Assessment Maternal Assessment Level of Consciousness: Fully Conscious DTR's/Clonus: DTRs 2+; No Clonus Headache: Denies Blurred Vision: No Respiratory Effort: Unlabored; Regular Rhythm; Equal Expansion Breath Sounds, Left: Clear and Equal Breath Sounds, Right: Clear and Equal Nausea/Vomiting: Denies RUQ Epigastric Pain: Denies Lower Extremities Edema: None Degree: None Upper Extremities Edema: None Facial Edema: None Fall Risk Assessment History of Falling: (0) No Secondary Diagnosis: (0) No Ambulatory Aid: (0) Bedrest/Nurse Assist IV Therapy: (0) No Gait: (0) Normal/Bedrest/Immobile Mental Status: (0) Oriented to Own Ability Fall Score: 0 Fall Risk Score Definition: No Risk: No action required Datetime: 06/02/2018 07:00 Stage of : Labor Labor Evaluation Frequency: irregular Monitor Mode: External Pattern: Normal: <= 5 Contractions in 10 Minutes Resting Tone [place]: Relaxed Heart Rate FHR Baseline Rate: 120 Monitor Mode: External US Variability: Moderate 6-25 bpm Accelerations: 15X15 Decelerations: None Category: Category I Datetime: 06/02/2018 06:42 Monitor Mode: External Monitor Mode: External US Datetime: 06/02/2018 06:30 Stage of : Labor Labor Evaluation Frequency: irregular Monitor Mode: External Pattern: Normal: <= 5 Contractions in 10 Minutes Resting Tone [place]: Relaxed Heart Rate FHR Baseline Rate: 120 Monitor Mode: External US Variability: Moderate 6-25 bpm Accelerations: 15X15 Decelerations: None Category: Category I Datetime: 06/02/2018 06:00 Stage of : Labor Labor Evaluation Frequency: irregular Monitor Mode: External Pattern: Normal: <= 5 Contractions in 10 Minutes Resting Tone [place]: Relaxed Heart Rate FHR Baseline Rate: 115 Monitor Mode: External US Variability: Moderate 6-25 bpm Accelerations: 15X15 Decelerations: None Category: Category I Datetime: 06/02/2018 05:30 Stage of : Labor Labor Evaluation Frequency: irregular Monitor Mode: External Pattern: Normal: <= 5 Contractions in 10 Minutes Resting Tone [place]: Relaxed Heart Rate FHR Baseline Rate: 120 Monitor Mode: External US Variability: Moderate 6-25 bpm Accelerations: 15X15 Decelerations: None Category: Category I Datetime: 06/02/2018 05:03 Temperature Route: Oral Datetime: 06/02/2018 05:00 Stage of : Labor Labor Evaluation Frequency: irregular Monitor Mode: External Pattern: Normal: <= 5 Contractions in 10 Minutes Resting Tone [place]: Relaxed Heart Rate FHR Baseline Rate: 115 Monitor Mode: External US Variability: Moderate 6-25 bpm Accelerations: 15X15 Decelerations: None Category: Category I Datetime: 06/02/2018 04:30 Stage of : Labor Labor Evaluation Frequency: irregular Monitor Mode: External Pattern: Normal: <= 5 Contractions in 10 Minutes Resting Tone [place]: Relaxed Heart Rate FHR Baseline Rate: 115 Monitor Mode: External US Variability: Moderate 6-25 bpm Accelerations: 15X15 Decelerations: None Category: Category I Datetime: 06/02/2018 04:01 Monitor Mode: External Monitor Mode: External US Datetime: 06/02/2018 03:50 Stage of : Labor Labor Evaluation Frequency: irregular Monitor Mode: External Pattern: Normal: <= 5 Contractions in 10 Minutes Resting Tone [place]: Relaxed Heart Rate FHR Baseline Rate: 120 Monitor Mode: External US Variability: Moderate 6-25 bpm Accelerations: 15X15 Decelerations: None Category: Category I Datetime: 06/02/2018 03:30 Stage of : Labor Labor Evaluation Frequency: irregular Monitor Mode: External Pattern: Normal: <= 5 Contractions in 10 Minutes Resting Tone [place]: Relaxed Heart Rate FHR Baseline Rate: 120 Monitor Mode: External US Variability: Moderate 6-25 bpm Accelerations: 15X15 Decelerations: None Category: Category I Datetime: 06/02/2018 03:00 Stage of : Labor Labor Evaluation Frequency: x1 in 30 minutes Monitor Mode: External Duration (sec)2399: 90 Pattern: Normal: <= 5 Contractions in 10 Minutes Resting Tone [place]: Relaxed Heart Rate FHR Baseline Rate: 125 Monitor Mode: External US Variability: Moderate 6-25 bpm Accelerations: 15X15 Decelerations: None Category: Category I Datetime: 06/02/2018 02:30 Stage of : Labor Labor Evaluation Frequency: 0 Monitor Mode: External Pattern: Normal: <= 5 Contractions in 10 Minutes Resting Tone [place]: Relaxed Heart Rate FHR Baseline Rate: 125 Monitor Mode: External US Variability: Moderate 6-25 bpm Accelerations: 15X15 Decelerations: None Category: Category I Datetime: 06/02/2018 02:00 Stage of : Labor Labor Evaluation Frequency: 0 Monitor Mode: External Pattern: Normal: <= 5 Contractions in 10 Minutes Resting Tone [place]: Relaxed Heart Rate FHR Baseline Rate: 125 Monitor Mode: External US Variability: Moderate 6-25 bpm Accelerations: 15X15 Decelerations: None Category: Category I Datetime: 06/02/2018 01:30 Stage of : Labor Labor Evaluation Frequency: 0 Monitor Mode: External Pattern: Normal: <= 5 Contractions in 10 Minutes Resting Tone [place]: Relaxed Heart Rate FHR Baseline Rate: 135 Monitor Mode: External US Variability: Moderate 6-25 bpm Accelerations: 15X15 Decelerations: None Category: Category I Datetime: 06/01/2018 21:46 EGA: 29.6 Datetime: 06/01/2018 19:36 EGA: 29.6 Datetime: 06/01/2018 19:33 Fall Score: 0 Fall Risk Score Definition: No Risk: No action required Datetime: 03/31/2018 10:34 Fall Score: 0 Fall Risk Score Definition: No Risk: No action required Datetime: 03/31/2018 10:27 EGA: 21.0
--- NOTE | 2018-07-11 18:32 | PN ---
Triage Information Date/Time July 11, 2018 Reason for visit: Abd/pelvic pain Weeks of Gestation 36 weeks and 6 days /Para 1 para 0 Diabetes: none Hypertention: none Additional information 18-year-old G1, P0 with IUP at 36 weeks and 6 days. Presented with complaint of abdominal pain and uterine contractions. Reports pain in the lower abdomen and suprapubic area as well as vaginal pain and low back pain. She denies any fever or chills. She denies any leaking of fluid uterine contractions decreased movements or any other complaints. Objective Vital Signs Date Temp Pulse Resp B/P (MAP) Pulse Ox O2 O2 Flow FiO2 Time Delivery Rate 07/11/18 97.9 80 18 109/62 08:00 (78) Heart Rate: 130's Heart Rate Comments NST category 1 and appropriate for gestational age Exam Appearance: Alert and oriented x4 does not appear to be in any acute distress Abdomen: Soft, gravid, fundal height consider gestational age, tenderness in lower abdomen and suprapubic area noted. No rebound tenderness, no guarding, no rigidity, no evidence of acute abdomen Size consistent with dates Extremities: No calf tenderness, no click no edema no cord palpable UA consistent with UTI NST: Category 1 BPP: 09/19 Cervical exam: 1.5/70/-1 TERE: 11.8 Results/Medications Result Diagram: 07/11/18 1112 Results 24 hrs Laboratory Tests Test 07/11/18 10:55 07/11/18 11:12 Urine Color YELLOW Urine Clarity CLOUDY A Urine pH 7.0 Urine Specific [place] 1.013 Urine Ketones NEGATIVE Urine Nitrite NEGATIVE Urine Bilirubin NEGATIVE Urine Urobilinogen NEGATIVE Urine Leukocyte Esterase 3+ H Urine Microscopic RBC 5 Urine Microscopic WBC 45 H Urine Squamous Epithelial Cells FEW Urine Bacteria FEW A Urine Mucus FEW A Urine Hemoglobin 3+ H Urine Glucose NEGATIVE Urine Total Protein NEGATIVE White Blood Count 12.4 #H Red Blood Count 4.01 L Hemoglobin 11.2 L Hematocrit 33.9 L Mean Corpuscular Volume 84.5 Mean Corpuscular Hemoglobin 27.9 L Mean Corpuscular Hemoglobin Concent 33.0 Red Cell Distribution Width 13.7 Platelet Count 318 Mean Platelet Volume 9.9 Immature Granulocytes % 0.700 H Neutrophils % 79.0 H Lymphocytes % 13.3 L Monocytes % 6.7 Eosinophils % 0.2 Basophils % 0.1 Nucleated Red Blood Cells % 0.0 Immature Granulocytes # 0.090 H Neutrophils # 9.8 H Lymphocytes # 1.7 Monocytes # 0.8 Eosinophils # 0.0 Basophils # 0.0 Nucleated Red Blood Cells # 0.0 Imaging Results PROCEDURE: OB ultrasound for biophysical profile CLINICAL INDICATION: Spotting. TECHNIQUE: Multiple sonographic images of the pelvis were obtained. Transabdominal view of the gravid uterus are available for review. The images were reviewed on a PACS workstation. COMPARISON: US PELVIS 06/01/2018 FINDINGS: breathing movement = 2/2 tone = 2/2 motion = 2/2 Quantitative amniotic fluid volume = 2/2 TERE = 11.8 cm Single live intrauterine with cardiac activity at 142 beats per minute. There is a fundal placenta without previa or abruption. IMPRESSION: 1. Single living intrauterine gestation in cephalic position. 2. Biophysical profile = 8/8. 3. TERE = 11.8 cm. Disposition: Discharge Assessment/Plan IUP at 36 weeks and 6 days Suprapubic pain and tenderness as well as vaginal pain and pressure. Exam consistent with UTI Discussed with patient regarding adequate hydration and treatment with antibiotics No evidence of labor or PPROM Adequate hydration discussed with the patient Follow-up with primary OB office within 48 hours after discharge from the hospital sooner as needed Patient verbalized understanding. All questions answered to patient with satisfaction EN LR MD July 11, 2018 18:32
== END 2018-07-11 12:55 | disposition home or self-care (01) ==
LOC: OBT 07:39 → L-D 07:41 → OBT 12:55
PROVIDERS: ATTEND Obstetrics & Gynecology
DX: O23.43 Unspecified infection of urinary tract in pregnancy, third trimester (principal); O62.9 Abnormality of forces of labor, unspecified; Z3A.36 36 weeks gestation of pregnancy
CPT/HCPCS: 76818; 81001; 85025; 87086; Z7500; Z7610; G0463

== ENCOUNTER 2018-07-30 15:19 | Inpatient (IN) | payer OTHER ==
[~2018-07-30] VITALS: Ht 152.4 cm; Wt 65.0 kg
[~2018-07-30 15:19] MED LIST changes: -NIFE10CA PO; -PROG100C5 VAG
[2018-07-30 15:30] VITALS: Ht 152.4 cm; Wt 65.0 kg
--- NOTE | 2018-07-30 15:37 | TRIAGE ---
OB Triage Datetime Report Generated by CPN: 07/30/2018 15:37 Datetime: 07/30/2018 15:32 Maternal Assessment Level of Consciousness: Keenly Alert, Responsive DTR's/Clonus: DTRs 1+ Headache: Denies Blurred Vision: No Nausea/Vomiting: Denies RUQ Epigastric Pain: Denies Facial Edema: None Labor Evaluation Frequency: 2 Monitor Mode: External Duration (sec)2399: 50-80 Quality: Mild Pattern: Normal: <= 5 Contractions in 10 Minutes Resting Tone [place]: Relaxed Heart Rate FHR Baseline Rate: 125 Monitor Mode: External US Variability: Moderate 6-25 bpm Accelerations: 15X15 Decelerations: None Category: Category I Pain Assessment Pain Scale: 5 Pain Presence: Intermittent Pain Type: Stabbing Pain Location: Back Pain Goal: 10 Membrane Status: Intact Datetime: 07/30/2018 15:25 Vaginal Exam Dilatation (cms): 5.0 Effacement (%): 100 Station: -2 Exam By: KAREEN NG Vaginal Bleeding: None Cervix, Consistency: Soft Cervix, Position: Midposition Presentation 'A': Cephalic Datetime: 07/30/2018 15:15 Time of Arrival: 07/30/2018 15:15 EGA: 39.4 Arrived By: Ambulatory Arrived From: Home Chief Complaint: R/O LABOR Movement: Present Contractions: Denies/Absent Rupture of Membranes: Denies Vaginal Discharge: Denies Recent Sexual Intercouse: Denies Abdominal Trauma: Not Applicable Additional Patient Complaints: NONE Time Provider Notified: 07/30/2018 15:28 Provider Notified: SHANTI Initial Plan: MONITOR AND VE Datetime: 07/11/2018 07:49 Fall Risk Assessment Fall Score: 0 Fall Risk Score Definition: No Risk: No action required Datetime: 07/11/2018 07:48 EGA: 36.6 Datetime: 07/11/2018 07:42 EGA: 31.1 Datetime: 06/03/2018 19:18 Fall Risk Assessment Fall Score: 0 Fall Risk Score Definition: No Risk: No action required Datetime: 06/02/2018 19:28 Fall Risk Assessment Fall Score: 20 Fall Risk Score Definition: No Risk: No action required Datetime: 06/02/2018 07:57 Fall Risk Assessment Fall Score: 0 Fall Risk Score Definition: No Risk: No action required Datetime: 06/01/2018 21:46 EGA: 29.6 Datetime: 06/01/2018 19:36 EGA: 29.6 Datetime: 06/01/2018 19:33 Fall Risk Assessment Fall Score: 0 Fall Risk Score Definition: No Risk: No action required Datetime: 03/31/2018 10:34 Fall Risk Assessment Fall Score: 0 Fall Risk Score Definition: No Risk: No action required Datetime: 03/31/2018 10:27 EGA: 21.0
[2018-07-30] MEDS ORDERED: LIDOCAINE 1% (MPF) 30 ML INJ INJ PRN (16:00)
[2018-07-30] MEDS ORDERED: METHYLERGONOVINE 0.2 MG INJ IM PRN (16:00)
[2018-07-30] MEDS ORDERED: MISOPROSTOL 200 MCG TAB PR PRN (16:00)
[2018-07-30] MEDS ORDERED: CARBOPROST 250 MCG INJ IM PRN (16:00)
[2018-07-30] MEDS ORDERED: AMPICILLIN 2 GM/NS (PMX) 100 ML IV ONE (16:00)
[2018-07-30] MEDS ORDERED: OXYTOCIN 30 UNITS/LR 500 ML IV SCH (16:00)
[2018-07-30] MEDS ORDERED: OXYTOCIN 30 UNITS/LR 500 ML IV PRN (16:00)
[2018-07-30] MEDS ORDERED: BUTORPHANOL 2 MG INJ IV PRN (16:00)
[2018-07-30] MEDS: LACTATED RINGER'S 1,000 ML IV SCH ×3 (16:20→22:54)
[2018-07-30] MEDS: AMPICILLIN 1 GM/NS (PMX) 50 ML IV SCH (20:25)
--- NOTE | 2018-07-30 21:22 | PREAC ---
Date/Time of Note Date/Time of Note DATE: 07/30/18 TIME: 21:21 Anesthesia Eval and Record Evaluation Time Pre-Procedure Interview DATE: 07/30/18 TIME: 21:21 Age 18 Sex female NPO: 8 hrs Preoperative diagnosis intrauterine Planned procedure labor epidural Past Medical History Past Medical History: Includes : : (1), Para: (0) Surgery & Anesthesia Issues No known issue Meds Anticoagulation: No Beta Saman within 24 hr: No Reason Beta Saman not given: Pt. not on B-Saman Reported Medications Vit No.124/Iron/FA ( Vitamin Tablet) 1 Each Tablet, 1 EACH PO, TAB 06/01/18 Current Medications Lactated Ringer's 1,000 ml @ 125 mls/hr Q8H IV Last administered on 07/30/18at 21:09; Admin Dose 125 MLS/HR; Start 07/30/18 at 15:57 Ampicillin 50 ml @ 100 mls/hr Q4H IV Last administered on 07/30/18at 20:25; Admin Dose 100 MLS/HR; Start 07/30/18 at 19:30 Butorphanol Tartrate (Stadol) 2 mg Q2H PRN IV .PAIN SCALE 6-10; Start 07/30/18 at 16:00 Lidocaine (Xylocaine 1% (Mpf)) 30 ml ONCE PRN INJ .EPISIOTOMY; Start 07/30/18 at 16:00 Oxytocin/Lactated Ringer's 500 ml @ 500 mls/hr ONCE POST IV ; Start 07/30/18 at 16:00 Oxytocin/Lactated Ringer's 500 ml @ 125 mls/hr POST IV ; Start 07/30/18 at 16:00 Oxytocin/Lactated Ringer's 500 ml @ 0 mls/hr ONCE PRN IV .VAGINAL BLEEDING; Start 07/30/18 at 16:00 Methylergonovine Maleate (Methergine) 0.2 mg ONCE PRN IM .VAGINAL BLEEDING; Start 07/30/18 at 16:00 Carboprost Tromethamine (Hemabate) 250 mcg ONCE PRN IM .VAGINAL BLEEDING; Start 07/30/18 at 16:00 Misoprostol (Cytotec) 1,000 mcg ONCE PRN MO .VAGINAL BLEEDING; Start 07/30/18 at 16:00 Meds reviewed: Yes Allergies Coded Allergies: No Known Allergy (Unverified , 03/31/18) Allergies Reviewed: Yes Labs/Studies Labs Reviewed: Reviewed by anesthesiologist Result Diagram: 07/30/18 1545 Laboratory Tests 07/30/18 15:45 Blood Bank Test 07/30/18 15:45 Antibody Screen NEGATIVE Blood Type B POSITIVE Rh Immune Globulin Candidate NO test: N/A Pre-procedure Exam Airway: Adequate mouth opening, Adequate thyromental dist Mallampati: Mallampati II Teeth: Normal Lung: Normal Heart: Normal ASA Physical Status ASA physical status: 2 Emergency: None Planned Anesthetic Neuraxial: Epidural Planned Pain Management Epidural Pre-operative Attestations Prior to commencing anesthesia and surgery, the patient was re-evaluated, there was verification of: *The patient's identity *The results of appropriate recent lab work and preoperative vital signs *The above evaluation not changing prior to induction *Anesthetic plan, risk benefits, alternative and complications discussed with patient/family; questions answered; patient/family understands, accepts and wishes to proceed. OLEG CADENA MD Jul 30, 2018 21:22
[2018-07-30] MEDS ORDERED: FENTAnyl 2MCG/ML-ROPIV 0.2% 100 ML ONE (21:24)
[2018-07-30] MEDS ORDERED: DIPHENHYDRAMINE 50 MG INJ IV PRN (21:30)
[2018-07-30] MEDS ORDERED: FENTAnyl 2MCG/ML-ROPIV 0.2% 100 ML BAG EPI SCH (21:30)
[2018-07-30] MEDS ORDERED: ONDANSETRON 4 MG INJ IV PRN (21:30)
[2018-07-30] MEDS ORDERED: NALOXONE (0.4 MG/ML) INJ IV PRN (21:30)
--- NOTE | 2018-07-30 22:20 | PAC ---
Date/Time of Note Date/Time of Note DATE: 07/30/18 TIME: 22:19 Post-Anesthesia Notes Post-Anesthesia Note Activity: WNL Respiratory function: WNL Cardiovascular function: WNL Mental status: Baseline Pain reasonably controlled: Yes Hydration appropriate: Yes Nausea/Vomiting absent: Yes Comments 108/65 HR: 78 RR: 16 T: 98 SaO2: 99% OLEG CADENA MD Jul 30, 2018 22:20
[2018-07-31] MEDS: AMPICILLIN 1 GM/NS (PMX) 50 ML IV SCH ×3 (00:42→07:42)
[2018-07-31] MEDS: LACTATED RINGER'S 1,000 ML IV SCH ×2 (04:19→06:17)
[2018-07-31 07:30] VITALS: BP 120/70; PULSE 76; RESP 20
[2018-07-31] MEDS ORDERED: HYDROCODONE/APAP (10/325) TAB GTB STA (11:53)
[2018-07-31] MEDS ORDERED: HYDROCODONE/APAP (10/325) TAB GTB PRN (12:00)
[2018-07-31] MEDS: OXYTOCIN 30 UNITS/LR 500 ML IV SCH ×2 (12:13→16:19)
--- NOTE | 2018-07-31 14:41 | HP ---
Date/Time of Note Date/Time of Note DATE: 07/31/18 TIME: 14:38 OB - History Hx of Present Free Text/Dictation 18 years old 1 with single intrauterine at 39 weeks and 5 days with a MIRELLA of 08/02/2018 complaining of uterine contractions. She states good movement. She denies nausea, vomiting, shortness of breath, chest pain, headache, visual changes, vaginal bleeding or LOF. Chief Complaint: Uterine contractions Estimated Due Date: Aug 02, 2018 : 1 Care: Good Care Ultrasounds: Normal mid trimester US Obstetrical Complications: None Medical Complications: None Past Family/Social History * Past Medical, Surgical, Family and Obstetric Histories reviewed from chart. Blood Type: B+ Rubella: immune RPR/VDRL: Negative GBS Status: Positive HBsAG: Negative OB Admission Exam Vital Signs Vital Signs Vital Signs Date Temp Pulse Resp B/P (MAP) Pulse Ox O2 O2 Flow FiO2 Time Delivery Rate 07/31/18 98.3 76 20 120/70 Room Air 07:30 (87) Physical Exam HEENT: WNL Heart: Rhythm Normal Lungs: Clear Abdomen: WNL Extremities: Normal Cervical Dilatation: 5cm Effacement: 75% Station: -2 Membranes: Intact Heart Rate: 130's Accelerations: Accelerations Present Decelerations: No Decelerations Varibility: Moderate Contractions on Admission: < 5 Minutes Apart Intensity: Moderate Last 72 hours Lab Results CBC & BMP 07/30/18 15:45 OB Assessment/Plan Other plan: 18-year-old 1 with single intrauterine at 39 weeks and 5 days in labor -FHR: No sign of metabolic acidosis- Category I -Continuous EFM, toco -CBC, blood type and screen -Analgesia options with R/B/A discussed in detail with patient -Epidural per patient request -Please see the orders B+/Rubella: Immune -GBS: Positive Admission, procedures, expectations, risks and possible complications have been discussed in detail with the patient. Risk of vaginal delivery including but not limited to bleeding, infection, cervical laceration, placental retention, injury to fetus, blood transfusion, blood transfusion related infection, risk of anesthesia, adhesion, cervical laceration, episiotomy/laceration, possible delivery with risk of bleeding, infection, injury to other organs (bowel, bladder, ureter, vessels, nerves), injury to fetus, blood transfusion, blood transfusion related infection, risk of anesthesia, scar and hernia formation, needs for future , removal of uterus or any other indicated surgery discussed with the patient. She expressed understanding and repeats the risks. All of her questions were answered. She signed the informed consent. PHYSICIAN'S VERIFICATION OF INFORMED CONSENT The patient was counseled regarding the procedure, its indications, risks, potential complications and alternatives and any questions were answered. Consent was obtained. PLANNED PROCEDURE/TREATMENT: Vaginal delivery, episiotomy, repair of laceration possible delivery DENISE MARK Jul 31, 2018 14:41
--- NOTE | 2018-07-31 14:44 | LDN ---
Date/Time of Note Date/Time of Note DATE: 07/31/18 TIME: 14:42 Delivery Summary 18 years old 1 with single intrauterine at 39 weeks and 5 days delivered a viable male over second-degree vaginal laceration. Nose and mouth suctioned. Rest of body delivered. Cord clamp and caught after stopping pulsation. Baby given to the nurse. Placenta delivered spontaneously and intact with three-vessel cord. Patient tolerated procedure well Time of delivery 11:30 Weight 3330 g - 7 pound 5 ounces Apgars 7 at 8 1 minutes, 9 at 5 minutes EBL 400 mL. Pitocin and Cytotec 400 p.o. given. Weeks of Gestation 39 weeks and 5 days Placenta Delivered: Spontaneously Episiotomy: No Estimated blood loss: 400 Sponge & Needle done & correct: Yes All needle counts correct: Yes Any foreign bodies felt in the: No Delivery Information Sex Sex: male Apgars 1 Minute: 7 5 Minute: 9 10 Minute: 9 Suctioning Nose & mouth suctioned at lisa: Yes Umbilical Cord Umbilical cord with: 3 Vessels Cord presentations: no nuchal cord Cord Blood was obtained: Yes Mother & Baby Disposition Disposition Mom & Baby to Maternity; Good: Yes DENISE MARK Jul 31, 2018 14:44
[2018-07-31 17:10] VITALS: BP 110/79; PULSE 83; RESP 17
[2018-07-31] MEDS ORDERED: ZOLPIDEM 5 MG TAB PO PRN (17:30)
[2018-07-31] MEDS ORDERED: OXYTOCIN 30 UNITS/LR 500 ML IV SCH (17:30)
[2018-07-31] MEDS ORDERED: ONDANSETRON 4 MG INJ IV PRN (17:30)
[2018-07-31] MEDS ORDERED: ACETAMINOPHEN 325 MG TAB PO PRN (17:30)
[2018-07-31] MEDS ORDERED: DEXTROSE 5%-LR 1,000 ML IV SCH (17:30)
[2018-07-31] MEDS ORDERED: MISOPROSTOL 200 MCG TAB PR PRN (17:30)
[2018-07-31] MEDS ORDERED: WITCH HAZEL/GLYCERIN PAD PR PRN (17:30)
[2018-07-31] MEDS ORDERED: METHYLERGONOVINE 0.2 MG INJ IM PRN (17:30)
[2018-07-31] MEDS ORDERED: OXYTOCIN 30 UNITS/LR 500 ML IV PRN (17:30)
[2018-07-31] MEDS ORDERED: DIBUCAINE 1% 30 GM OINT TOP PRN (17:30)
[2018-07-31] MEDS ORDERED: CARBOPROST 250 MCG INJ IM PRN (17:30)
[2018-07-31] MEDS ORDERED: DIPHENHYDRAMINE 50 MG INJ IV PRN (17:30)
[2018-07-31] MEDS ORDERED: OXYCODONE/ASPIRIN (4.88/325) TAB PO PRN (17:30)
[2018-07-31] MEDS ORDERED: LACTATED RINGER'S 1,000 ML IV* SCH (17:30)
[2018-07-31] MEDS ORDERED: BENZOCAINE 20% 56 ML SPRAY TOP PRN (17:30)
[2018-07-31] MEDS: IBUPROFEN 600 MG TAB PO SCH ×2 (17:59→23:56)
[2018-07-31] MEDS ORDERED: CEPHALEXIN 500 MG CAP PO SCH (18:00)
[2018-07-31] MEDS: LANOLIN HPA 1 PKT TOP PRN (19:55)
[2018-07-31] MEDS: SENNA/DOCUSATE NA (8.6MG/50MG) TAB PO PRN (19:55)
[2018-07-31 20:00] VITALS: BP 104/68; PULSE 86; RESP 19
[2018-08-01] VITALS: BP 90/53; PULSE 82; RESP 19
[2018-08-01 03:46] VITALS: BP 88/57; PULSE 70; RESP 18
[2018-08-01] MEDS: IBUPROFEN 600 MG TAB PO SCH ×4 (06:01→23:50)
[2018-08-01 08:00] VITALS: BP 89/54; PULSE 65; RESP 16
[2018-08-01] MEDS: SENNA/DOCUSATE NA (8.6MG/50MG) TAB PO PRN (08:48)
[2018-08-01] MEDS: CEPHALEXIN 500 MG CAP PO SCH ×3 (11:15→23:50)
[2018-08-01 15:28] VITALS: BP_SYST 112; BP_SYST 117; BP_DIAS 64; BP_DIAS 66; PULSE 74; PULSE 87; RESP 16; RESP 18
[2018-08-01] MEDS: LANOLIN HPA 1 PKT TOP PRN (17:38)
--- NOTE | 2018-08-01 18:03 | DS ---
Date/Time of Note Date/Time of Note Home today or next day DATE: 08/01/18 TIME: 18:02 Obstetrical Discharge Record Final Diagnosis Final Diagnosis: Term delivered Other Final Diagnosis Status post vaginal delivery Vaginal Delivery Obstetrical Delivery: Spontaneous, Laceration, Repaired Complications Augmentation: No Condition on Discharge Physical Assessment Last Vitals: See nurse's notes Voiding: Yes Bowel Movement: Yes Breast: Soft, non-tender, Filling Fundus: Firm Abdomen and Incision: Abdomen is soft with firm fundus Episiotomy: Perineum is healing well and appears clean Calf Tenderness: No Patient Condition: Good MATTHEW PRESCOTT MD Aug 01, 2018 18:03
--- NOTE | 2018-08-01 18:06 | PD.PPDC ---
READING ASSISTANT Discharge Instruction Provider Information Physician Information 18-year-old female had vaginal delivery Diagnosis [id number] Final Diagnosis: [id number] Status post vaginal delivery Condition [id number] Patient Condition: [id number] Good Diet [id number] Diet: Jqtog3g Resume Regular Diet Activity/Restrictions [id number] Activity: [id number] Normal Activity May Shower [id number] Restrictions: [id number] Nothing in the Vagina [id number] Return to Work or School: [id number] Sep 16, 2018 Follow-up Follow-up with Physician: 2, 4, Week/Weeks (In clinic) Return to clinic for [id number] OB Instructions: Aizhl3h Breast Tenderness Depression Comment: Pelvic rest for 6 weeks MATTHEW PRESCOTT MD Aug 01, 2018 18:06
[2018-08-01] MEDS ORDERED: IBUP-1542 PO (18:07)
[2018-08-01 20:00] VITALS: BP 110/53; PULSE 61; RESP 18
[2018-08-02 04:00] VITALS: BP 97/54; PULSE 60; RESP 20
[2018-08-02] MEDS: CEPHALEXIN 500 MG CAP PO SCH ×3 (05:39→17:32)
[2018-08-02] MEDS: IBUPROFEN 600 MG TAB PO SCH ×3 (05:40→17:32)
[2018-08-02 08:00] VITALS: BP 92/51; PULSE 54; RESP 18
[2018-08-02] MEDS ORDERED: MEASLES,MUMPS,RUBELLA VACCINE INJ SC* ONE (09:00)
[2018-08-02] MEDS ORDERED: DIPHTH/TET/ACEL PERTUSS (ADULT) 0.5 ML VIAL IM* ONE (09:00)
[2018-08-02] MEDS: LANOLIN HPA 1 PKT TOP PRN (15:04)
[2018-08-02 16:19] VITALS: BP 105/58; PULSE 58; RESP 18
[2018-08-02] MEDS: SENNA/DOCUSATE NA (8.6MG/50MG) TAB PO PRN (17:31)
--- NOTE | 2018-08-03 18:21 | DELSUM ---
Delivery Summary A-C Datetime Report Generated by CPN: 08/03/2018 18:21 DELIVERY PERSONNEL Remelt Furnace Expediter: Luna, Frantz MATERNAL INFORMATION Delivery Anesthesia: Epidural Medications in Delivery: 30 UNITS PITOCIN IN 500ML LR Delivery QBL (ml): 494 Placenta Cultured: No Maternal Complications: None LABOR SUMMARY EDC: 08/02/2018 00:00 No. Babies in Womb: 1 Attempted: No Labor Anesthesia: Epidural LABOR INFORMATION Reason for Induction: Not Applicable Onset of Labor: 07/30/2018 15:00 Complete Dilatation: 07/31/2018 07:29 Oxytocin: N/A Group B Beta Strep: Positive Antibiotics # of Doses: X2 Antibiotics Time of Last Dose: 07/30/2018 20:25 Steroids Given: Full Course Reason Steroids Not Administered: Not Applicable MEMBRANES Membranes Rupture Method: Spontaneous Rupture of Membranes: 07/31/2018 09:32 Length of Rupture (hr): 1.97 Amniotic Fluid Color: Clear Amniotic Fluid Amount: Moderate Amniotic Fluid Odor: None STAGES OF LABOR Stage 1 hr: 16 Stage 1 min: 29 Stage 2 hr: 4 Stage 2 min: 1 Stage 3 hr: 0 Stage 3 min: 11 Total Time in Labor hr: 20 Total Time in Labor min: 41 VAGINAL DELIVERY Episiotomy: None Laceration Extension: Second Degree Laceration Type: Perineal Laceration Repair: Yes Initial Vag Sponge Count: 30 Final Vag Sponge Count: 30 Initial Vag Sharps Count: 3 Final Vag Sharps Count: 3 Sponge Count Correct: Yes; Vaginal Sweep Performed Sharps Count Correct: Yes BABY A INFORMATION Delivery Date/Time: 07/31/2018 11:30 Method of Delivery: Vaginal Born in Route : No : N/A Forceps: N/A Vacuum Extraction: N/A Shoulder Dystocia : N/A SHOULDER DYSTOCIA BABY A Infant Delivery Date/Time: 07/31/2018 11:30 PRESENTATION/POSITION BABY A Presentation: Cephalic Cephalic Presentation: Vertex Vertex Position: Left Occipital Anterior Breech Presentation: N/A PLACENTA INFORMATION BABY A Placenta Delivery Time : 07/31/2018 11:41 Placenta Method of Delivery: Spontaneous Placenta Status: Delivered SCORES BABY A Heart Rate 1 min: >100 bpm Resp Effort 1 min: Good Cry Reflex Irritability 1 min: Grimace Muscle Tone 1 min: Some Flexion of Extrem Color 1 min: Body Mcnary, Extremit Blue Resuscitation Effort 1 min: Tactile Stimulation; Oxygen SCORE 1 MIN: 7 Heart Rate 5 min: >100 bpm Resp Effort 5 min: Good Cry Reflex Irritability 5 min: Cough/Sneeze/Pulls Away Muscle Tone 5 min: Active Motion Color 5 min: Body [place], Extremit Blue Resuscitation Effort 5 min: Tactile Stimulation SCORE 5 MIN: 9 Heart Rate 10 min: >100 bpm Resp Effort 10 min: Good Cry Reflex Irritability 10 min: Cough/Sneeze/Pulls Away Muscle Tone 10 min: Active Motion Color 10 min: Body Mcn[place], Extremit Blue SCORE 10 MIN: 9 INFANT INFORMATION BABY A Gestational Age at Delivery: 39.5 Gestational Status: Full Term- 39- 40.6 Weeks Outcome : Liveborn Condition : Stable Sex: Male IDENTIFICATION/MEDS BABY A ID Band Number: [id number] ID Band Location: Right Leg; Left Arm Sensor Applied: Yes Sensor Number: [id number] Sensor Location : Cord Clamp Vitamin K Given : Not Given Erythromycin Given: Not Given WEIGHT/LENGTH BABY A Birthweight (gm): 3330 Infant Weight (lb): 7 Weight (oz): 5 Infant Length (in): 20.00 Length (cm): 50.80 CORD INFORMATION BABY A No. Cord Vessels: 3 Nuchal Cord : N/A Cord Blood Taken: Yes Infant Suction: Mouth; Nose ASSESSMENT BABY A Infant Complications: Multiple Late Decels Physical Findings at Delivery: Molding of the Head; Skin Tags Physical Findings- Other: BOTH EARS Infant Respirations: Appears Normal Analysis Mgr/ALS Called : Yes Infant Care By: RUCHI/ POP Transferred To: Remains with Mother
== END 2018-08-02 18:20 | disposition home or self-care (01) | DRG 807 ==
LOC: OBT 15:19 → L-D 15:20 → OBT 15:28 → PP1 07-31 16:55
PROVIDERS: ADMIT Obstetrics & Gynecology; ATTEND Obstetrics & Gynecology
PROC: 4A1HXCZ Monitoring of Products of Conception, Cardiac Rate, External Approach (ICD-10-PCS; 2018-07-30)
PROC: 10E0XZZ Delivery of Products of Conception, External Approach (ICD-10-PCS; principal; 2018-07-31)
PROC: 0KQM0ZZ Repair Perineum Muscle, Open Approach (ICD-10-PCS; 2018-07-31)
DX: O99.824 Streptococcus B carrier state complicating childbirth (principal); Z37.0 Single live birth; O70.1 Second degree perineal laceration during delivery; Z3A.39 39 weeks gestation of pregnancy
CPT/HCPCS: 62322; 85025; 85610; 85730; 86592; 86850; 86900; 86901; 87086; A4310; G0463; J0290; J2210; J2590; J3010; J7120; J7121